=== PATIENT | male | born 1965 | race Caucasian/White ===

== ENCOUNTER 2020-07-15 23:23 | Emergency (ER) | payer MEDICAID ==
[~2020-07-15] VITALS: Ht 182.9 cm; Wt 131.0 kg
[2020-07-16] MEDS ORDERED: ASPIRIN 325MG EC TABLET PO ONE (00:30)
[2020-07-16] MEDS ORDERED: KETOROLAC 60MG/2ML VIAL IM ONE (00:30)
[2020-07-16 02:44] VITALS: BP 130/54
== END 2020-07-16 02:56 | disposition home or self-care (01) ==
LOC: ER 23:23
DX: M79.661 Pain in right lower leg (principal); F17.200 Nicotine dependence, unspecified, uncomplicated; Z96.652 Presence of left artificial knee joint
CPT/HCPCS: 93971; 96372; 99284; J1885